=== PATIENT | female | born 1990 | race Caucasian/White ===

== ENCOUNTER 2017-05-29 18:54 | Emergency (ER) | payer OTHER ==
[2017-05-29] MEDS ORDERED: Ondansetron 4 MG/2 ML SDV IVPUSH ONE (19:39)
[2017-05-29] MEDS ORDERED: Lactated Ringers 1,000 ML IV SCH (19:45)
--- NOTE | 2017-05-29 20:44 | EDM.PDOC ---
ED HPI GENERAL MEDICAL PROBLEM - General Chief Complaint: Gastrointestinal Problem Stated Complaint: 22 WKS AND HAS FLU/COLD SYMPTOMS Time Seen by Provider: 05/29/17 19:36 Source of Information: Reports: Patient, Family () History Limitations: Reports: No Limitations - History of Present Illness Onset: Gradual Duration: Waxing/Waning Location: Reports: Generalized Quality: Reports: Other (body aches) Severity: Moderate Improves with: Reports: Rest Worsens with: Reports: None Context: Reports: Other (concerns of flu illness with at 22 weeks) Associated Symptoms: Reports: Loss of Appetite, Nausea/Vomiting 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 Stomach Pain Score (Numeric/FACES): 4 Head Pain Score (Numeric/FACES): 4 - Related Data Allergies Allergy/AdvReac Type Severity Reaction Status Date / Time No Known Allergies Allergy Verified 05/29/17 19:20 Home Meds: Home Meds Vits #93/Iron Fum/FA [ Formula Tablet] 1 each PO DAILY [History] 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 with her first child.) ED ROS GENERAL - Review of Systems Review Of Systems: See Below Constitutional: Reports: Fever, Fatigue, Other (body aches, with nausea, vomiting and diarrhea. ) HEENT: Reports: Throat Pain (from frequent vomiting) Respiratory: Reports: No Symptoms Cardiovascular: Reports: No Symptoms Endocrine: Reports: Fatigue GI/Abdominal: Reports: Diarrhea, Nausea, Vomiting : Reports: No Symptoms Musculoskeletal: Reports: Muscle Pain, Muscle Stiffness Skin: Reports: No Symptoms Neurological: Reports: No Symptoms Psychiatric: Reports: No Symptoms Hematologic/Lymphatic: Reports: No Symptoms Immunologic: Reports: No Symptoms ED EXAM, GENERAL - Physical Exam Exam: See Below Exam Limited By: No Limitations General Appearance: Alert, WD/WN, No Apparent Distress Eye Exam: Bilateral Eye: Normal Inspection Ears: Normal External Exam, Normal Canal, Hearing Grossly Normal, Normal TMs Nose: Normal Inspection, Normal Mucosa, No Blood Throat/Mouth: Normal Lips, Normal Teeth, Normal Gums, Inflammation Head: Atraumatic, Normocephalic Neck: Normal Inspection, Supple, Non-Tender, Full Range of Motion Respiratory/Chest: No Respiratory Distress, Lungs Clear, Normal Breath Sounds, No Accessory Muscle Use, Chest Non-Tender Cardiovascular: Regular Rate, Rhythm, No Murmur GI/Abdominal: Normal Bowel Sounds, Soft, Non-Tender, Other (; , heart tones 160) Back Exam: Normal Inspection, Full Range of Motion Extremities: Normal Inspection, Normal Range of Motion, Non-Tender, No Pedal Edema, Normal Capillary Refill Neurological: Alert, Oriented, CN II-XII Intact, Normal Cognition, Normal Gait, Normal Reflexes, No Motor/Sensory Deficits Psychiatric: Normal Affect, Normal Mood Skin Exam: Warm, Dry, Intact, Normal Color, No Rash Lymphatic: No Adenopathy Course - Vital Signs Last Recorded V/S: Last Vital Signs Temp 37.5 C 05/29/17 19:16 Pulse 114 H 05/29/17 19:16 Resp 18 05/29/17 19:16 BP 121/72 05/29/17 19:16 Pulse Ox 98 05/29/17 19:16 - Orders/Labs/Meds Orders: Active Orders 24 hr Category Date Time Status Heart Tones [RC] ASDIRECTED Care 05/29/17 19:40 Active STREP SCRN A RAPID W CULT CONF [RM] Stat Lab 05/29/17 20:07 Results Labs: Laboratory Tests 05/29/17 05/29/17 05/29/17 Range/Units 19:39 19:48 19:48 WBC 10.9 (4.5-11.0) K/uL RBC 3.92 (3.30-5.50) M/uL Hgb 11.4 L (12.0-15.0) g/dL Hct 33.5 L (36.0-48.0) % MCV 86 (80-98) fL MCH 29 (27-31) pg MCHC 34 (32-36) % Plt Count 195 (150-400) K/uL Neut % (Auto) 76 H (36-66) % Lymph % (Auto) 11 L (24-44) % [place] % (Auto) 12 H (2-6) % Eos % (Auto) 1 L (2-4) % Baso % (Auto) 0 (0-1) % Sodium 137 L (140-148) mmol/L Potassium 3.6 (3.6-5.2) mmol/L Chloride 103 (100-108) mmol/L Carbon Dioxide 27 (21-32) mmol/L Anion Gap 10.6 (5.0-14.0) mmol/L BUN 9 (7-18) mg/dL Creatinine 0.6 (0.6-1.0) mg/dL Est Cr Clr Drug Dosing 122.69 mL/min Estimated GFR (MDRD) > 60 (>60) Glucose 84 (74-106) mg/dL Calcium 8.4 L (8.5-10.1) mg/dL Urine Color Yellow Urine Appearance Slightly cloudy Urine pH 7.0 (4.5-8.0) Ur Specific [place] 1.015 (1.008-1.030) Urine Protein Negative (NEGATIVE) mg/dL Urine Glucose (UA) Normal (NEGATIVE) mg/dL Urine Ketones 15 H (NEGATIVE) mg/dL Urine Occult Blood Negative (NEGATIVE) Urine Nitrite Negative (NEGATIVE) Urine Bilirubin Negative (NEGATIVE) Urine Urobilinogen Normal (NORMAL) mg/dL Ur Leukocyte Esterase Negative (NEGATIVE) Urine RBC 0-5 (0-5) Urine WBC 0-5 (0-5) Ur Epithelial Cells Many Amorphous Sediment Not seen Urine Bacteria Many Urine Mucus Not seen Meds: Medications Discontinued Medications Generic Name Dose Route Start Last Admin Trade Name Regis PRN Reason Stop Dose Admin Lactated Ringer's 1,000 mls @ 999 mls/hr 05/29/17 19:45 05/29/17 20:21 Ringers, Lactated IV 999 mls/hr ASDIRECTED ELIJAH Administration Ondansetron HCl 4 mg 05/29/17 19:39 05/29/17 20:21 Zofran IVPUSH 05/29/17 19:40 4 mg ONETIME ONE Administration - Re-Assessments/Exams Free Text/Narrative Re-Assessment/Exam: 05/29/17 21:40 rapid strep positive, ua +ketones given one liter of LR, meds IV Zofran 4mg; symptoms relieved. will to discharge to home with Penicillin and Zofran as directed discussed having other family members tested if symptomatic Departure - Departure Time of Disposition: 21:44 Disposition: Home, Self-Care 01 Condition: Good Clinical Impression: Strep throat, state, incidental, Dehydration, mild - Discharge Information Instructions: Dehydration, Adult, [place] Referrals: Taurus Eli MD [Primary Care Provider] - Forms: ED Department Discharge Care Plan Goals: Strep Throat dehydration due to nausea/vomiting/diarrhea state -start tonight; Penvk 500mg tablet; take one in morning and evening for 10 days -Zofran 4mg every 8 hours as needed for nausea -push fluids, rest, take medications as directed, infection control return to clinic or er for any increase pain,fever, chills, nausea, vomiting, diarrhea, rash or not improved - Problem List & Annotations (1) Dehydration, mild SNOMED Code(s): 6499060800000 Code(s): E86.0 - DEHYDRATION Status: Acute Priority: High Current Visit : Yes (2) state, incidental SNOMED Code(s): 09953606 Code(s): Z33.1 - STATE, INCIDENTAL Status: Acute Priority: Medium Current Visit: Yes (3) Strep throat SNOMED Code(s): 76410228 Code(s): J02.0 - STREPTOCOCCAL PHARYNGITIS Status: Acute Priority: High Current Visit: Yes - Problem List Review Problem List Initiated/Reviewed/Updated: Yes - My Orders Last 24 Hours: My Active Orders 05/29/17 19:40 Heart Tones [RC] ASDIRECTED 05/29/17 20:07 STREP SCRN A RAPID W CULT CONF [RM] Stat - Assessment/Plan Last 24 Hours: My Active Orders 05/29/17 19:40 Heart Tones [RC] ASDIRECTED 05/29/17 20:07 STREP SCRN A RAPID W CULT CONF [RM] Stat Plan: Strep Throat dehydration due to nausea/vomiting/diarrhea state -start tonight; Penvk 500mg tablet; take one in morning and evening for 10 days -Zofran 4mg every 8 hours as needed for nausea -push fluids, rest, take medications as directed, infection control return to clinic or er for any increase pain,fever, chills, nausea, vomiting, diarrhea, rash or not improved
== END 2017-05-29 21:29 | disposition home or self-care (01) ==
LOC: JP.ED 18:54
DX: O98.912 Unspecified maternal infectious and parasitic disease complicating pregnancy, second trimester (principal); J02.0 Streptococcal pharyngitis; O99.282 Endocrine, nutritional and metabolic diseases complicating pregnancy, second trimester; E86.0 Dehydration; Z79.899 Other long term (current) drug therapy; Z3A.22 22 weeks gestation of pregnancy
CPT/HCPCS: 36415; 80048; 81001; 85025; 87430; 87804; 96361; 96374; 99284; J2405; J7120

== ENCOUNTER 2021-04-07 22:00 | Emergency (ER) | payer OTHER ==
[2021-04-07] MEDS ORDERED: Ketorolac 30 MG/ML SDV IM ONE (22:52)
--- NOTE | 2021-04-07 23:44 | EDM.PDOC ---
ED HPI GENERAL MEDICAL PROBLEM - General Chief Complaint: Respiratory Problem Stated Complaint: SOB COVID POSITIVE Time Seen by Provider: 04/07/21 22:37 Source of Information: Reports: Patient, Old Records History Limitations: Reports: No Limitations - History of Present Illness INITIAL COMMENTS - FREE TEXT/NARRATIVE: Elaine is a 30-year-old female presenting to the ED for evaluation of increasing chest pain and worsening shortness of breath. Patient was seen in the clinic several days ago where she was diagnosed with COVID-19. She was started on Tessalon Perles and an albuterol inhaler but says that neither of these have helped. She is now complaining of central sharp, stabbing chest pain that worsens with inspiration. She is feeling absolutely miserable with the C ovid infection. She is unvaccinated as is the remainder of her family who likely now also have the illness as they are running low-grade fevers. Her SPO2 without activity is running 91 to 92% on room air. She is having significant pleurodynia. She has had decreased appetite but has been pushing fluids. She has generalized malaise and fatigue. She otherwise is healthy and has no significant past medical history. 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 with her first child.) ED ROS GENERAL - Review of Systems Review Of Systems: See Below Constitutional: Reports: Fever, Chills, Malaise, Weakness, Fatigue, Decreased Appetite Respiratory: Reports: Shortness of Breath, Pleuritic Chest Pain, Cough. Denies: Sputum Cardiovascular: Reports: Chest Pain Endocrine: Reports: Fatigue GI/Abdominal: Reports: Decreased Appetite : Reports: No Symptoms Musculoskeletal: Reports: Muscle Pain Skin: Reports: No Symptoms Neurological: Reports: No Symptoms Psychiatric: Reports: Anxiety Hematologic/Lymphatic: Reports: No Symptoms Immunologic: Reports: No Symptoms ED EXAM, GENERAL - Physical Exam Exam: See Below Exam Limited By: No Limitations General Appearance: Alert, Anxious, Mild Distress Eye Exam: Bilateral Eye: EOMI, PERRL Nose: Normal Inspection Throat/Mouth: Normal Inspection, Normal Oropharynx, Normal Voice, No Airway Compromise Head: Atraumatic, Normocephalic Neck: Normal Inspection, Supple, Non-Tender, Full Range of Motion. No: Lymphadenopathy (R), Lymphadenopathy (L) Respiratory/Chest: No Respiratory Distress, No Accessory Muscle Use, Rhonchi (Bibasilar scant rhonchi). No: Rales, Wheezing Cardiovascular: Normal Peripheral Pulses, Regular Rate, Rhythm, No Murmur, Tachycardia Peripheral Pulses: 2+: Radial (L), Radial (R) GI/Abdominal: Normal Bowel Sounds, Soft, Non-Tender Back Exam: Normal Inspection Extremities: Normal Inspection, Normal Range of Motion, No Pedal Edema Neurological: Alert, Oriented, Normal Cognition, No Motor/Sensory Deficits Psychiatric: Normal Affect, Anxious Skin Exam: Warm, Dry, Intact, Normal Color, No Rash Lymphatic: No Adenopathy Course - Vital Signs Last Recorded V/S: Last Vital Signs Temp 36.7 C 04/07/21 22:14 Pulse 121 H 04/07/21 22:14 Resp 18 04/07/21 22:14 BP 122/81 04/07/21 22:14 Pulse Ox 92 L 04/07/21 22:14 - Orders/Labs/Meds Labs: Laboratory Tests 04/07/21 04/07/21 04/07/21 Range/Units 23:10 23:10 23:10 WBC 8.3 (4.5-11.0) K/uL RBC 4.70 (3.30-5.50) M/uL Hgb 12.3 (12.0-15.0) g/dL Hct 37.5 (36.0-48.0) % MCV 80 (80-98) fL MCH 26 L (27-31) pg MCHC 33 (32-36) % Plt Count 229 (150-400) K/uL Neut % (Auto) 77.4 H (36-66) % Lymph % (Auto) 12.2 L (24-44) % [place] % (Auto) 9.6 H (2-6) % Eos % (Auto) 0.4 L (2-4) % Baso % (Auto) 0.4 (0-1) % D-Dimer, Quantitative 1464.82 H (0.0-500.0) ng/mL Lactic Acid (0.4-2.0) mmol/L Ferritin 183 (8-388) ng/ml C-Reactive Protein 10.94 H (0.0-0.3) mg/dL Procalcitonin ng/mL 04/07/21 04/07/21 Range/Units 23:10 23:10 WBC (4.5-11.0) K/uL RBC (3.30-5.50) M/uL Hgb (12.0-15.0) g/dL Hct (36.0-48.0) % MCV (80-98) fL MCH (27-31) pg MCHC (32-36) % Plt Count (150-400) K/uL Neut % (Auto) (36-66) % Lymph % (Auto) (24-44) % [place] % (Auto) (2-6) % Eos % (Auto) (2-4) % Baso % (Auto) (0-1) % D-Dimer, Quantitative (0.0-500.0) ng/mL Lactic Acid 0.9 (0.4-2.0) mmol/L Ferritin (8-388) ng/ml C-Reactive Protein (0.0-0.3) mg/dL Procalcitonin < 0.05 ng/mL Meds: Medications Discontinued Medications Generic Name Dose Route Start Last Admin Trade Name Freq PRN Reason Stop Dose Admin Ketorolac Tromethamine 30 mg 04/07/21 22:52 04/07/21 23:08 Ketorolac 30 Mg/Ml Sdv IM 04/07/21 22:53 30 mg ONETIME ONE Administration - Radiology Interpretation Free Text/Narrative:: Viewed the chest x-ray report from 04/06/2021 done at [facility] showing bilateral basilar airspace disease consistent with Covid pneumonia, left greater than right. - Re-Assessments/Exams Free Text/Narrative Re-Assessment/Exam: 04/07/21 23:45 I reviewed the labs with a hemoglobin showing a leukocyte count of 8.3, hemoglobin of 12.3, hematocrit of 37.5, and platelet count of 229,000. 04/08/21 00:30 unfortunately, the patient does not meet criteria to receive the monoclonal antibodies infusion. She does have benefit from the Toradol which is made it easier for her to breathe. We will continue this as an oral 10 mg 4 times a day as needed for pain for the next 5 days. You should continue to use her inhaler and Tessalon Perles for her shortness of breath and cough. At this time there is nothing more to offer her. Indications return to the ED were discussed. Departure - Departure Time of Disposition: 00:26 Disposition: Home, Self-Care 01 Clinical Impression: COVID-19, Pleurodynia, viral - Discharge Information Instructions: COVID-19: What to Do if You Are Sick - [facility] (08/13/2020) Referrals: PCP,Unknown [Primary Care Provider] - Forms: ED Department Discharge Care Plan Goals: Unfortunately, you did not meet the criteria to receive the monoclonal antibody treatment. We are going to put you on Toradol 10 mg 4 times a day as needed for your chest pain. Continue to use the inhaler and Tessalon Perles. Sepsis Event Note (ED) - Evaluation Sepsis Screening Result: Possible Sepsis Risk - Focused Exam Vital Signs: Vital Signs Temp Pulse Resp BP Pulse Ox 04/07/21 22:14 36.7 C 121 H 18 122/81 92 L 04/07/21 22:08 36.7 C 121 H 18 122/81 92 L - Problem List & Annotations (1) COVID-19 SNOMED Code(s): 167795379 Code(s): U07.1 - COVID-19 Status: Acute Current Visit: Yes (2) Pleurodynia, viral SNOMED Code(s): 66430091 Code(s): B33.0 - EPIDEMIC MYALGIA Status: Acute Current Visit: Yes - Problem List Review Problem List Initiated/Reviewed/Updated: Yes
== END 2021-04-08 01:09 | disposition home or self-care (01) ==
LOC: JP.ED 22:00
DX: U07.1 COVID-19 (principal)
CPT/HCPCS: 36415; 82728; 83605; 84145; 85025; 85379; 86140; 96372; 99284; J1885

== ENCOUNTER 2025-05-26 00:39 | Emergency (ER) | payer BC ==
[2025-05-26 01:29] LABS: APPEARANCE,URINE CLEAR (CLEAR); GLUCOSE,URINE NEGATIVE (NEGATIVE); OCCULT BLOOD,URINE NEGATIVE (NEGATIVE)
== END 2025-05-26 02:10 | disposition home or self-care (01) ==
LOC: JP.ED 00:39
DX: O99.891 Other specified diseases and conditions complicating pregnancy (principal); R33.9 Retention of urine, unspecified; Z3A.15 15 weeks gestation of pregnancy; Z79.899 Other long term (current) drug therapy; Z90.49 Acquired absence of other specified parts of digestive tract
CPT/HCPCS: 81003; 99283